=== PATIENT | female | born 2000 | race Two or more races ===

== ENCOUNTER 2024-03-02 16:57 | Emergency (ER) | payer OTHER ==
[~2024-03-02] VITALS: Ht 160 cm; Wt 52.6 kg
[2024-03-02] MEDS ORDERED: ONDANSETRON HCL/PF 4 MG/2 ML VIAL ONE (17:29)
[2024-03-02 17:30] LABS: BASOPHILS % (AUTO) 0.2 % (0.0-2.0); EOSINOPHILS % (AUTO) 0.1 % (0.0-6.0); HEMATOCRIT 43 % (33-45); HEMOGLOBIN 14.3 g/dL (11.5-14.8); LYMPHOCYTES # (AUTO) 0.8 K/uL (0.8-4.8); LYMPHOCYTES % (AUTO) 8.9 % (20.0-44.0); MEAN CORPUSCULAR HEMOGLOBIN 30 PG (26.0-33.0); MEAN CORPUSCULAR HGB CONC 33 g/dl (31.0-36.0); MEAN CORPUSCULAR VOLUME 90 fL (82-100); MONOCYTES # (AUTO) 0.5 K/uL (0.1-1.30); MONOCYTES % (AUTO) 5.5 % (2.0-12.0); NEUTROPHILS # (AUTO) 7.7 K/uL (1.8-8.9); NEUTROPHILS % (AUTO) 85.3 % (43.0-81.0); PLATELET COUNT (AUTO) 329 K/uL (150-450); RED BLOOD CELL COUNT(AUTO) 4.77 MIL/uL (4.0-5.2)
[2024-03-02 17:34] LABS: PREGNANCY TEST URINE QUAL NEGATIVE (NEGATIVE)
[2024-03-02] MEDS: IV NS 0.9% 1,000 ML BAG IV ONE (17:36)
[2024-03-02] MEDS: ONDANSETRON HCL/PF 4 MG/2 ML VIAL IVP ONE (17:37)
[2024-03-02 17:38] LABS: CALCIUM, SERUM 9.5 mg/dL (8.5-10.1); CREATININE 0.8 mg/dL (0.6-1.3); POTASSIUM 3.9 mmol/L (3.5-5.1)
[2024-03-02 19:39] VITALS: BP 97/56; TEMP 98; O2SAT 99
== END 2024-03-02 19:41 | disposition home or self-care (01) ==
LOC: ER 17:27
DX: K31.84 Gastroparesis (principal); R42 Dizziness and giddiness; R53.1 Weakness; R11.0 Nausea; Z60.2 Problems related to living alone
CPT/HCPCS: 99283; 96374; 96361; 85025; 80048; 84703; 36415; J2405; J7030